=== PATIENT | male | born 1945 | race African-American/Black ===

== ENCOUNTER 2019-05-25 17:05 | Inpatient (IN) | payer MEDICARE, MEDICAID ==
[~2019-05-25] VITALS: Ht 165.1 cm; Wt 78.5 kg
[2019-05-25 23:31] LABS: *AMPHETAMINES SCREEN URINE NEGATIVE (NEGATIVE); *BARBITURATES SCREEN URINE PRESUMTIVE POSITIVE (NEGATIVE); *COCAINE SCREEN URINE NEGATIVE (NEGATIVE); METHADONE URINE SCREEN NEGATIVE (NEGATIVE)
[2019-05-25 23:32] LABS: *BENZODIAZEPINES SCREEN URINE NEGATIVE (NEGATIVE); CANNABINOID URINE SCREEN NEGATIVE (NEGATIVE); OPIATES URINE SCREEN PRESUMTIVE POSITIVE (NEGATIVE); PHENCYCLIDINE URINE SCREEN NEGATIVE (NEGATIVE)
[2019-05-26 01:15] LABS: BASOPHILS % 0.2 % (0.0-2.0); EOSINOPHILS % 1.4 % (0.0-5.0); HEMATOCRIT. 35.4 % (42.0-52.0); HEMOGLOBIN. 11.7 g/dL (14.0-18.0); LYMPHOCYTES % 33.5 % (20.0-50.0); MEAN CORPUSCULAR HEMOGLOBIN 30.9 pg (28.0-32.0); MEAN PLATELET VOLUME 8.3 fl (7.4-10.4); MONOCYTES % 9.3 % (2.0-8.0); NEUTROPHILS % 55.6 % (40.0-76.0); PLATELET 139 x1000/uL (130-400); RED BLOOD CELL COUNT 3.77 mill/uL (4.7-6.1); RED CELL DISTRIBUTION WIDTH 15.6 % (11.6-14.6)
[2019-05-26 01:20] LABS: CHLORIDE 111 mEq/L (98-107)
[2019-05-26 01:24] LABS: ETHANOL BLOOD < 10 mg/dL
[2019-05-26] MEDS ORDERED: LORAZEPAM 1MG TABLET PO ONE (01:30)
[2019-05-26] MEDS ORDERED: ASPIRIN 81MG TABLET PO ONE (01:30)
[2019-05-26] MEDS ORDERED: HYDROCODONE/ACETAMINOPHEN 5/325MG TABLET PO ONE (02:00)
[2019-05-26] MEDS: MORPHINE SULFATE 2 MG/ML CPJ (NOT FOR IM USE) IV PRN ×3 (04:57→23:35)
[2019-05-26] MEDS ORDERED: ONDANSETRON HCL 4MG/2ML INJ IV PRN (09:45)
[2019-05-26] MEDS ORDERED: ACETAMINOPHEN 325MG TABLET PO PRN (09:45)
[2019-05-26 10:55] LABS: LDL CHOLESTEROL 62 mg/dL (5-100)
[2019-05-26] MEDS: ENOXAPARIN 40MG/0.4ML SYR SUBCUT SCH (10:59)
[2019-05-26 11:00] LABS: HDL CHOLESTEROL 75 mg/dL (40-59)
[2019-05-26] MEDS: NITROGLYCERIN OINT 1GM/INCH UDPKT TD SCH ×2 (11:00→23:34)
[2019-05-26] MEDS ORDERED: QUETIAPINE FUMARATE 25MG TABLET PO NR (15:45)
[2019-05-26] MEDS ORDERED: CLOPIDOGREL 75MG TABLET PO NR (15:45)
[2019-05-26] MEDS ORDERED: ASPIRIN 81MG TABLET PO NR (15:45)
[2019-05-26] MEDS ORDERED: TRAZODONE HCL 50MG TABLET PO NR (16:00)
[2019-05-26] MEDS ORDERED: LORAZEPAM 1MG TABLET PO NR (16:30)
[2019-05-26 20:20] VITALS: BP 141/81
[2019-05-26 20:45] VITALS: BP 141/81
[2019-05-26] MEDS ORDERED: NITR0.4T SL (23:50)
[2019-05-26] MEDS ORDERED: ALBU18HF2 IH (23:50)
[2019-05-26] MEDS ORDERED: TIMO5DRO32 EACHEYE (23:50)
[2019-05-27] VITALS: BP 114/60
[2019-05-27] MEDS ORDERED: LEVOTHYROXINE SODIUM 50MCG TABLET PO SCH (06:45)
[2019-05-27] MEDS: NITROGLYCERIN OINT 1GM/INCH UDPKT TD SCH ×2 (06:48→14:00)
[2019-05-27 06:49] VITALS: BP 142/85
[2019-05-27] MEDS: MORPHINE SULFATE 2 MG/ML CPJ (NOT FOR IM USE) IV PRN ×2 (06:49→14:31)
[2019-05-27] MEDS ORDERED: ASPIRIN 81MG TABLET PO SCH (09:00)
[2019-05-27] MEDS: ENOXAPARIN 40MG/0.4ML SYR SUBCUT SCH (09:41)
[2019-05-27] MEDS ORDERED: LORAZEPAM 1MG TABLET PO PRN (10:30)
[2019-05-27 12:00] VITALS: BP 152/70
[2019-05-27] MEDS ORDERED: LEVO50TA8 MT (13:37)
[2019-05-27 16:00] VITALS: BP 143/75
[2019-05-27 17:19] VITALS: BP 143/75
== END 2019-05-27 18:00 | disposition home or self-care (01) | DRG 206 ==
LOC: ER 17:05 → 5WST 05-26 01:48 → EDBEDREQTM 05-26 01:52 → EDBEDREQ 05-26 01:52 → ENRESERV 05-26 19:04
PROVIDERS: ADMIT Internal Medicine; ATTEND Internal Medicine
DX: M94.0 Chondrocostal junction syndrome [Tietze] (principal); I24.9 Acute ischemic heart disease, unspecified; E44.1 Mild protein-calorie malnutrition; D64.9 Anemia, unspecified; Z68.28 Body mass index [BMI] 28.0-28.9, adult; E78.00 Pure hypercholesterolemia, unspecified; E78.5 Hyperlipidemia, unspecified; E87.8 Other disorders of electrolyte and fluid balance, not elsewhere classified; F41.9 Anxiety disorder, unspecified; I44.0 Atrioventricular block, first degree; I50.9 Heart failure, unspecified; J44.9 Chronic obstructive pulmonary disease, unspecified; K21.9 Gastro-esophageal reflux disease without esophagitis; F99 Mental disorder, not otherwise specified; I11.0 Hypertensive heart disease with heart failure; I25.10 Atherosclerotic heart disease of native coronary artery without angina pectoris; I25.2 Old myocardial infarction; Z95.1 Presence of aortocoronary bypass graft; E03.9 Hypothyroidism, unspecified; Z88.8 Allergy status to other drugs, medicaments and biological substances
CPT/HCPCS: 36415; 71045; 80053; 80061; 80305; 80320; 83880; 84443; 84484; 85025; 93005; 96372; 96374; 97162; 99285; J1650; J2270; G0480

== ENCOUNTER 2021-03-16 04:46 | Inpatient (IN) | payer MEDICARE, MEDICAID ==
[~2021-03-16] VITALS: Ht 165.1 cm; Wt 69.0 kg
[~2021-03-16 04:46] MED LIST: ALBU18HF2 IH; LEVO50TA8 MT; NITR0.4T SL; TIMO5DRO32 EACHEYE
[2021-03-16] MEDS ORDERED: ONDANSETRON HCL 4MG/2ML INJ IV STA (05:13)
[2021-03-16] MEDS ORDERED: FAMOTIDINE 20MG/2ML VIAL IV ONE (05:15)
[2021-03-16] MEDS ORDERED: MAGNESIUM/ALUMINUM HYDROXIDE/SIMETHICONE 30ML UDC PO ONE (05:15)
[2021-03-16] MEDS ORDERED: MORPHINE SULFATE 4 MG/ML CPJ (NOT FOR IM USE) IV NR (05:30)
[2021-03-16] MEDS ORDERED: FAMOTIDINE 20MG TABLET PO ONE (06:15)
[2021-03-16] MEDS: ONDANSETRON 4MG ODT PO ONE ×2 (06:20→06:27)
[2021-03-16] MEDS: VISCOUS LIDOCAINE 2% 15 ML UDC PO ONE ×2 (06:21→06:26)
[2021-03-16 09:09] LABS: CHLORIDE 107 mEq/L (98-107)
[2021-03-16 09:14] LABS: ETHANOL BLOOD < 10 mg/dL
[2021-03-16 09:25] LABS: *AMPHETAMINES SCREEN URINE NEGATIVE (NEGATIVE); *BARBITURATES SCREEN URINE NEGATIVE (NEGATIVE); *BENZODIAZEPINES SCREEN URINE NEGATIVE (NEGATIVE); *COCAINE SCREEN URINE NEGATIVE (NEGATIVE); METHADONE URINE SCREEN NEGATIVE (NEGATIVE); OPIATES URINE SCREEN PRESUMTIVE POSITIVE (NEGATIVE)
[2021-03-16 09:26] LABS: CANNABINOID URINE SCREEN NEGATIVE (NEGATIVE); PHENCYCLIDINE URINE SCREEN NEGATIVE (NEGATIVE)
[2021-03-16] MEDS ORDERED: FUROSEMIDE 40MG/4ML VIAL IVP ONE (09:30)
[2021-03-16 10:14] LABS: HEMATOCRIT. 29.7 % (42.0-52.0); HEMOGLOBIN. 9.8 g/dL (14.0-18.0); LYMPHOCYTES % 41.3 % (20.0-50.0); MEAN CORPUSCULAR HEMOGLOBIN 29.1 pg (28.0-32.0); MEAN CORPUSCULAR VOLUME 87.8 fL (80.0-94.0); MONOCYTES % 11.2 % (2.0-8.0); NEUTROPHILS % 44.5 % (40.0-76.0); PLATELET 143 x1000/uL (130-400); RED BLOOD CELL COUNT 3.38 mill/uL (4.7-6.1)
[2021-03-16] MEDS ORDERED: TRAMADOL 50MG TABLET PO PRN (11:30)
[2021-03-16] MEDS ORDERED: MAGNESIUM/ALUMINUM HYDROXIDE/SIMETHICONE 30ML UDC PO PRN (11:30)
[2021-03-16] MEDS ORDERED: ACETAMINOPHEN 325MG TABLET PO PRN ×2 (11:30)
[2021-03-16] MEDS ORDERED: ONDANSETRON HCL 4MG/2ML INJ IV PRN (11:30)
[2021-03-16] MEDS ORDERED: NITROGLYCERIN 0.4MG TABLET SL SL PRN (11:30)
[2021-03-16] MEDS ORDERED: DOCUSATE SODIUM 100MG CAPSULE PO PRN (11:30)
[2021-03-16] MEDS ORDERED: ZOLPIDEM TARTRATE 5MG TABLET PO PRN (11:30)
[2021-03-16] MEDS ORDERED: GUAIFENESIN 200MG/10ML SUGAR FREE UDC PO PRN (11:30)
[2021-03-16] MEDS ORDERED: CLONIDINE 0.1MG TABLET PO PRN (11:30)
[2021-03-16] MEDS ORDERED: IPRATROPIUM/ALBUTEROL 0.5-3(2.5)MG/3ML NEB NEB PRN (11:30)
[2021-03-16] MEDS ORDERED: NALOXONE HCL 0.4MG/ML VIAL IV PRN (12:00)
[2021-03-16] MEDS ORDERED: ENOXAPARIN 40MG/0.4ML SYR SUBCUT SCH (12:00)
[2021-03-16 12:23] LABS: FOLIC ACID (FOLATE) SERUM 8.5 ng/mL (>5.38)
[2021-03-16] MEDS ORDERED: AMLODIPINE 2.5MG TABLET PO SCH (13:00)
[2021-03-16] MEDS ORDERED: NITROGLYCERIN OINT 1GM/INCH UDPKT TD SCH (14:00)
[2021-03-16 14:10] VITALS: BP 147/86
[2021-03-16 14:57] LABS: CREATINE KINASE 145 IU/L (39-308)
[2021-03-16 14:58] LABS: CREATINE KINASE MB FRACTION 2.4 ng/mL (0.5-3.6)
[2021-03-16] MEDS ORDERED: ATOR-2 PO (15:47)
[2021-03-16] MEDS ORDERED: LORA-249 PO (15:47)
[2021-03-16] MEDS ORDERED: HYDR-459 PO (15:47)
[2021-03-16] MEDS ORDERED: DOCU250C69 PO (15:47)
[2021-03-16] MEDS ORDERED: BUSP10TA3 MT (15:47)
[2021-03-16] MEDS ORDERED: NEBI5TAB3 PO (15:47)
[2021-03-16] MEDS ORDERED: CLOP75TA33 PO (15:47)
[2021-03-16] MEDS ORDERED: ASPI81TA47 PO (15:47)
[2021-03-16] MEDS ORDERED: FAMO20TA8 PO (15:47)
[2021-03-16] MEDS ORDERED: POTA10CA42 PO (15:47)
[2021-03-16] MEDS ORDERED: TRAM50TA3 PO (15:47)
[2021-03-16] MEDS ORDERED: LEVO125T8 PO (15:47)
[2021-03-16] MEDS ORDERED: UMEC62.5 IH (15:47)
[2021-03-16] MEDS ORDERED: ONDA4TAB5 PO (15:47)
[2021-03-16] MEDS ORDERED: T3 PO (15:47)
[2021-03-16] MEDS ORDERED: FAMOTIDINE 20MG TABLET PO SCH (21:00)
[2021-03-16] MEDS ORDERED: FUROSEMIDE 40MG/4ML VIAL IVP SCH (21:00)
[2021-03-16] MEDS ORDERED: SPIRONOLACTONE 25MG TABLET PO SCH (21:00)
== END 2021-03-16 16:20 | disposition left against medical advice (07) | DRG 291 ==
LOC: ER 04:46 → 7EST 10:40 → EDBEDREQTM 10:43 → EDBEDREQ 10:43 → ENRESERV 12:29
PROVIDERS: ADMIT Internal Medicine; ATTEND Internal Medicine
DX: I11.0 Hypertensive heart disease with heart failure (principal); E43 Unspecified severe protein-calorie malnutrition; I24.9 Acute ischemic heart disease, unspecified; E87.1 Hypo-osmolality and hyponatremia; I25.110 Atherosclerotic heart disease of native coronary artery with unstable angina pectoris; I44.0 Atrioventricular block, first degree; J44.9 Chronic obstructive pulmonary disease, unspecified; E03.9 Hypothyroidism, unspecified; F41.9 Anxiety disorder, unspecified; I42.9 Cardiomyopathy, unspecified; I50.82 Biventricular heart failure; Z53.29 Procedure and treatment not carried out because of patient's decision for other reasons; E78.00 Pure hypercholesterolemia, unspecified; E78.5 Hyperlipidemia, unspecified; D64.9 Anemia, unspecified; K21.9 Gastro-esophageal reflux disease without esophagitis; Z20.822 Contact with and (suspected) exposure to COVID-19; Z95.810 Presence of automatic (implantable) cardiac defibrillator; Z82.49 Family history of ischemic heart disease and other diseases of the circulatory system; Z95.1 Presence of aortocoronary bypass graft; I25.2 Old myocardial infarction; Z95.5 Presence of coronary angioplasty implant and graft; Z87.891 Personal history of nicotine dependence; Z68.25 Body mass index [BMI] 25.0-25.9, adult; Z79.899 Other long term (current) drug therapy; Z88.8 Allergy status to other drugs, medicaments and biological substances; Z88.6 Allergy status to analgesic agent; Z88.4 Allergy status to anesthetic agent
CPT/HCPCS: 36415; 71045; 80053; 80305; 80320; 82550; 82553; 82607; 82746; 83540; 83550; 83880; 84443; 84484; 85025; 87426; 93005; 93970; 99291; J1650; J1940; J2270; Q0162; G0480

== ENCOUNTER 2021-10-07 18:47 | Inpatient (IN) | payer MEDICARE, MEDICAID ==
[~2021-10-07] VITALS: Ht 172.7 cm; Wt 69.5 kg
[~2021-10-07 18:47] MED LIST changes: +ASPI81TA47 PO; +ATOR-2 PO; +BUSP10TA3 MT; +CLOP75TA33 PO; +DOCU250C69 PO; +FAMO20TA8 PO; +HYDR-459 PO; +LEVO125T8 PO; +LORA-249 PO; +NEBI5TAB3 PO; +ONDA4TAB5 PO; +POTA10CA42 PO; +T3 PO; +TRAM50TA3 PO; +UMEC62.5 IH
[2021-10-07 19:57] LABS: BASOPHILS % 0.8 % (0.0-2.0); EOSINOPHILS % 2.6 % (0.0-5.0); HEMATOCRIT. 30.1 % (42.0-52.0); HEMOGLOBIN. 9.6 g/dL (14.0-18.0); LYMPHOCYTES % 51.7 % (20.0-50.0); MEAN CORPUSCULAR HEMOGLOBIN 29.1 pg (28.0-32.0); MEAN PLATELET VOLUME 7.5 fl (7.4-10.4); MONOCYTES % 9.8 % (2.0-8.0); NEUTROPHILS % 35.1 % (40.0-76.0); PLATELET 163 x1000/uL (130-400); RED BLOOD CELL COUNT 3.31 mill/uL (4.7-6.1); RED CELL DISTRIBUTION WIDTH 15.7 % (11.6-14.6)
[2021-10-07 20:01] LABS: CHLORIDE 103 mEq/L (98-107)
[2021-10-07] MEDS ORDERED: FUROSEMIDE 40MG/4ML VIAL IVP NR (21:00)
[2021-10-07] MEDS ORDERED: MORPHINE SULFATE 4 MG/ML CPJ (NOT FOR IM USE) IV ONE (21:00)
[2021-10-07] MEDS ORDERED: IPRATROPIUM/ALBUTEROL 0.5-3(2.5)MG/3ML NEB NEB PRN (23:00)
[2021-10-07] MEDS ORDERED: GUAIFENESIN 200MG/10ML SUGAR FREE UDC PO PRN (23:00)
[2021-10-07] MEDS ORDERED: CLONIDINE 0.1MG TABLET PO PRN (23:00)
[2021-10-07] MEDS ORDERED: ACETAMINOPHEN 325MG TABLET PO PRN ×2 (23:00)
[2021-10-07] MEDS ORDERED: MAGNESIUM/ALUMINUM HYDROXIDE/SIMETHICONE 30ML UDC PO PRN (23:00)
[2021-10-07] MEDS ORDERED: NALOXONE HCL 0.4MG/ML VIAL IV PRN (23:15)
[2021-10-08] VITALS: BP 167/79
[2021-10-08] MEDS ORDERED: TRAZ-252 PO (00:24)
[2021-10-08] MEDS ORDERED: QUET100T34 PO (00:24)
[2021-10-08 00:40] VITALS: BP 169/79
[2021-10-08] MEDS: QUETIAPINE FUMARATE 50MG TABLET PO SCH ×2 (00:51→20:14)
[2021-10-08] MEDS: TRAZODONE HCL 50MG TABLET PO SCH ×2 (00:51→20:15)
[2021-10-08] MEDS: HYDROCODONE/ACETAMINOPHEN 5/325MG TABLET PO PRN ×3 (05:42→20:14)
[2021-10-08] MEDS: FUROSEMIDE 40MG/4ML VIAL IV SCH ×2 (06:46→17:39)
[2021-10-08] MEDS ORDERED: LEVOTHYROXINE SODIUM 125MCG TABLET PO SCH (07:40)
[2021-10-08 07:50] LABS: BASOPHILS % 0.6 % (0.0-2.0); EOSINOPHILS % 2.8 % (0.0-5.0); HEMATOCRIT. 33.1 % (42.0-52.0); HEMOGLOBIN. 10.7 g/dL (14.0-18.0); LYMPHOCYTES % 50.9 % (20.0-50.0); MEAN CORPUSCULAR HEMOGLOBIN 28.8 pg (28.0-32.0); MEAN CORPUSCULAR VOLUME 89.1 fL (80.0-94.0); MEAN PLATELET VOLUME 8.4 fl (7.4-10.4); MONOCYTES % 11.9 % (2.0-8.0); NEUTROPHILS % 33.8 % (40.0-76.0); PLATELET 190 x1000/uL (130-400); RED BLOOD CELL COUNT 3.71 mill/uL (4.7-6.1); RED CELL DISTRIBUTION WIDTH 15.5 % (11.6-14.6)
[2021-10-08 07:57] LABS: CHLORIDE 103 mEq/L (98-107)
[2021-10-08 08:00] VITALS: BP 95/60
[2021-10-08 08:18] LABS: PHOSPHORUS 3.4 mg/dL (2.5-4.9)
[2021-10-08] MEDS: ENOXAPARIN 40MG/0.4ML SYR SUBCUT SCH (09:00)
[2021-10-08] MEDS: ONDANSETRON HCL 4MG/2ML INJ IV PRN ×2 (09:32→20:14)
[2021-10-08] MEDS: CLOPIDOGREL 75MG TABLET PO SCH (11:23)
[2021-10-08 12:19] LABS: T4 FREE 0.71 ng/dL (0.76-1.46)
[2021-10-08 16:40] LABS: CREATINE KINASE 55 IU/L (39-308); CREATINE KINASE MB FRACTION < 1.0 ng/mL (0.5-3.6)
[2021-10-08 20:00] VITALS: BP 122/70
[2021-10-09] VITALS: BP 102/78
[2021-10-09] MEDS: HYDROCODONE/ACETAMINOPHEN 5/325MG TABLET PO PRN ×2 (00:15→10:23)
[2021-10-09 00:47] LABS: CREATINE KINASE 63 IU/L (39-308); CREATINE KINASE MB FRACTION < 1.0 ng/mL (0.5-3.6)
[2021-10-09 04:00] VITALS: BP 107/59
[2021-10-09] MEDS ORDERED: LEVOTHYROXINE SODIUM 150MCG TABLET PO SCH (06:15)
[2021-10-09 06:19] LABS: CREATINE KINASE 52 IU/L (39-308); CREATINE KINASE MB FRACTION < 1.0 ng/mL (0.5-3.6)
[2021-10-09] MEDS: FUROSEMIDE 40MG/4ML VIAL IV SCH (06:25)
[2021-10-09 08:00] VITALS: BP 135/67
[2021-10-09] MEDS: CLOPIDOGREL 75MG TABLET PO SCH (08:44)
[2021-10-09] MEDS: ENOXAPARIN 40MG/0.4ML SYR SUBCUT SCH (08:44)
[2021-10-09] MEDS ORDERED: ASPIRIN 81MG TABLET PO SCH (09:00)
[2021-10-09] MEDS: ONDANSETRON HCL 4MG/2ML INJ IV PRN (10:23)
[2021-10-09 12:00] VITALS: BP 152/93
[2021-10-09] MEDS ORDERED: REGADENOSON 0.4 MG/5 ML IV ONE (12:15)
[2021-10-09] MEDS ORDERED: LOSARTAN POTASSIUM 25 MG TABLET PO SCH (12:15)
[2021-10-09] MEDS ORDERED: CARVEDILOL 3.125 MG TABLET PO SCH (12:15)
== END 2021-10-09 15:40 | disposition left against medical advice (07) | DRG 205 ==
LOC: ER 18:47 → 7WST 22:17 → SUPCPDRO 22:42 → ENRESERV 22:43
PROVIDERS: ADMIT Internal Medicine; ATTEND Internal Medicine
DX: M94.0 Chondrocostal junction syndrome [Tietze] (principal); I50.23 Acute on chronic systolic (congestive) heart failure; I11.0 Hypertensive heart disease with heart failure; I25.10 Atherosclerotic heart disease of native coronary artery without angina pectoris; J44.9 Chronic obstructive pulmonary disease, unspecified; K21.9 Gastro-esophageal reflux disease without esophagitis; I25.2 Old myocardial infarction; E78.00 Pure hypercholesterolemia, unspecified; E03.9 Hypothyroidism, unspecified; I25.5 Ischemic cardiomyopathy; D64.9 Anemia, unspecified; E78.5 Hyperlipidemia, unspecified; F41.9 Anxiety disorder, unspecified; F17.200 Nicotine dependence, unspecified, uncomplicated; Z53.29 Procedure and treatment not carried out because of patient's decision for other reasons; Z79.02 Long term (current) use of antithrombotics/antiplatelets; Z95.1 Presence of aortocoronary bypass graft; Z88.4 Allergy status to anesthetic agent; Z90.49 Acquired absence of other specified parts of digestive tract; Z82.49 Family history of ischemic heart disease and other diseases of the circulatory system; Z95.0 Presence of cardiac pacemaker; R79.89 Other specified abnormal findings of blood chemistry
CPT/HCPCS: 36415; 71045; 80048; 80053; 80061; 82550; 82553; 83036; 83735; 83880; 84100; 84439; 84443; 84484; 85025; 85379; 93005; 93306; 99285; J1650; J1940; J2270; J2405; J2785